=== PATIENT | female | born 1945 | race Caucasian/White ===

== ENCOUNTER 2016-06-12 13:05 | Observation (INO) | payer MEDICARE ==
[~2016-06-12] VITALS: Ht 172.7 cm; Wt 71.2 kg
[2016-06-12] VITALS (11 sets, daily range): BP systolic 119–218; BP diastolic 65–111; PULSE 69–105; RESP 16–20; TEMP 96.4–98.7; O2SAT 94–100
[~2016-06-12 13:05] MED LIST: ASPI81TA82 PO; DEXT1TAB PO; FLUT50SP EACH NARE; LEVA500T PO; LORTA5 PO; POTA99TA12 PO; TAB-TAB PO
[2016-06-12] MEDS ORDERED: LEVA250T PO (13:18)
--- NOTE | 2016-06-12 13:42 | PD ---
HPI Chief Complaint: Chest Pain Time Seen by Provider: 13:30 Travel History International Travel<30 days: No Contact w/Intl Traveler<30days: No Traveled to known affect area: No History of Present Illness HPI This 70-year-old female is complaining of chest pain. She says that last she went to urgent care center because of some tightness in her chest. At that time she was having elevated blood pressure. He was diagnosed with bronchitis. This morning she had an onset of left-sided chest pain related visits says it feels like a pressure on the left side of the chest. She is having some discomfort now. It is not pleuritic. She has no history of heart disease. She has had sporadic elevations of blood pressure but is on no medication. She has no history of diabetes her parents had heart disease. She has never smoked. She has had a slight cough. PFSH Past Medical History Anxiety: Yes Cancer: No Cardiovascular Problems: No Endocrine: No Genitourinary: No Hepatitis: No Hiatal Hernia: No Immune Disorder: No Medical other: Yes (LEG CRAMPS) Musculoskeletal: Yes (GENERALIZED ARTHRITIS) Neurologic: No Psychiatric: Yes (CLAUSTRAPHOBIA) Reproductive: No Respiratory: Yes (ENVIRONMENTAL ALLERGIES) Past Surgical History Abdominal Surgery: Yes (APPY) AICD: No Body Medical Devices: NONE Cardiac Surgery: No Ear Surgery: No Endocrine Surgery: No Eye Surgery: No Gynecologic Surgery: Yes (TL,SURERGY TO REMOVE IUD) Joint Replacement: No Oral Surgery: No Pacemaker: No Thoracic Surgery: No Other Surgery: Yes (NOSE) Social History Alcohol Use: Yes Tobacco Use: No Substance Use: No Allergies-Medications (Allergen,Severity, Reaction): Coded Allergies: Amoxicillin (Verified Allergy, Severe, RASH, EDEMA,DIFFICULTY SWALLOWING, 06/12/16) Compazine (Verified Allergy, Severe, SPASM IN NECK, 06/12/16) Reported Meds & Prescriptions Reported Meds & Active Scripts Active Reported Levaquin (Levofloxacin) 250 Mg Tab Unknown Dose PO DAILY Review of Systems General / Constitutional: No: Fever, Chills Eyes: No: Diploplia, Blurred Vision HENT: No: Headaches, Vertigo Cardiovascular: Positive: Chest Pain or Discomfort, No: Palpitations Respiratory: No: Cough, Shortness of Breath Gastrointestinal: No: Vomiting, Diarrhea Genitourinary: No: Urgency, Frequency Musculoskeletal: No: Myalgias, Arthralgias Skin: No Rash Neurologic: No: Weakness, Dizziness Physical Exam Narrative PhysicalGENERAL: Well-developed female SKIN: Warm and dry. HEAD: Atraumatic. Normocephalic. EYES: Pupils equal and round. No scleral icterus. No injection or drainage. ENT: No nasal bleeding or discharge. Mucous membranes pink and moist. NECK: Trachea midline. No JVD. CARDIOVASCULAR: Regular rate and rhythm. No murmur appreciated. RESPIRATORY: No accessory muscle use. Clear to auscultation. Breath sounds equal bilaterally. GASTROINTESTINAL: Abdomen soft, non-tender, nondistended. Hepatic and splenic margins not palpable. MUSCULOSKELETAL: No obvious deformities. No clubbing. No cyanosis. No edema. NEUROLOGICAL: Awake and alert. No obvious cranial nerve deficits. Motor grossly within normal limits. Normal speech. PSYCHIATRIC: Appropriate mood and affect; insight and judgment normal. Data Data Last Documented VS Vital Signs Date Time Temp Pulse Resp B/P Pulse Ox O2 Delivery O2 Flow Rate FiO2 06/12/16 14:00 105 16 159/91 98 06/12/16 13:14 98.7 Orders Electrocardiogram (06/12/16 13:39) Basic Metabolic Panel (Bmp) (06/12/16 13:39) Complete Blood Count With Diff (06/12/16 13:39) Magnesium (Mg) (06/12/16 13:39) Prothrombin Time / Inr (Pt) (06/12/16 13:39) Act Partial Throm Time (Ptt) (06/12/16 13:39) Troponin I (06/12/16 13:39) Chest, Single Ap (06/12/16 13:39) Ecg Monitoring (06/12/16 13:39) Iv Access Insert/Monitor (06/12/16 13:39) Oximetry (06/12/16 13:39) Oxygen Administration (06/12/16 13:39) Aspirin Chew (Aspirin Chew) (06/12/16 13:45) Nitroglycerin 2% Oint (Nitroglycerin 2% (06/12/16 13:45) Sodium Chloride 0.9% Flush (Ns Flush) (06/12/16 13:45) Nitroglycerin Sl (Nitrostat Sl) (06/12/16 13:45) B-Type Natriuretic Peptide (06/12/16 14:08) Admit Order (Ed Use Only) (06/12/16 14:34) Labs Laboratory Tests Test 06/12/16 06/12/16 13:45 14:20 White Blood Count 7.7 TH/MM3 Red Blood Count 4.65 MIL/MM3 Hemoglobin 13.8 GM/DL Hematocrit 38.9 % Mean Corpuscular Volume 83.7 FL Mean Corpuscular Hemoglobin 29.6 PG Mean Corpuscular Hemoglobin 35.3 % Concent Red Cell Distribution Width 12.2 % Platelet Count 283 TH/MM3 Mean Platelet Volume 8.1 FL Neutrophils (%) (Auto) 76.8 % Lymphocytes (%) (Auto) 16.5 % Monocytes (%) (Auto) 5.3 % Eosinophils (%) (Auto) 0.9 % Basophils (%) (Auto) 0.5 % Neutrophils # (Auto) 5.9 TH/MM3 Lymphocytes # (Auto) 1.3 TH/MM3 Monocytes # (Auto) 0.4 TH/MM3 Eosinophils # (Auto) 0.1 TH/MM3 Basophils # (Auto) 0.0 TH/MM3 CBC Comment DIFF FINAL Differential Comment Prothrombin Time 11.2 SEC Prothromb Time International 1.0 RATIO Ratio Activated Partial 27.9 SEC Thromboplast Time Sodium Level 138 MEQ/L Potassium Level 3.7 MEQ/L Chloride Level 104 MEQ/L Carbon Dioxide Level 23.0 MEQ/L Anion Gap 11 MEQ/L Blood Urea Nitrogen 13 MG/DL Creatinine 0.67 MG/DL Estimat Glomerular Filtration 87 ML/MIN Rate Random Glucose 96 MG/DL Calcium Level 9.1 MG/DL Magnesium Level 2.2 MG/DL Troponin I LESS THAN 0.02 NG/ML B-Type Natriuretic Peptide 33 PG/ML [facility] Medical Decision Making Medical Screen Exam Complete: Yes Emergency Medical Condition: Yes Medical Record Reviewed: Yes Differential Diagnosis Differential includes atypical chest pain, coronary artery disease, angina Narrative Course Chest x-ray shows clear lung henderson. Troponin is normal. EKG shows normal sinus rhythm. Facial be admitted to chest pain center for further evaluation Admitting Information Admitting Physician Requests: Observation Brian Edwards MD Jun 12, 2016 13:42
[2016-06-12] MEDS ORDERED: NITROGLYCERIN 0.4 MG SL 25 TABS/BTL SL ONE (13:45)
[2016-06-12] MEDS ORDERED: SODIUM CHLORIDE 0.9% FLUSH 5 ML FLUSH IVF PRN ×2 (13:45→14:45)
[2016-06-12] MEDS ORDERED: ASPIRIN 81 MG CHEW TAB PO ONE (13:45)
[2016-06-12] MEDS ORDERED: NITROGLYCERIN 2% OINT 1 GM PACKET TOP ONE (13:45)
[2016-06-12 13:55] LABS: AUTOMATED NEUTROPHIL # 5.9 TH/MM3 (1.8-7.7); BASOPHIL % 0.5 % (0.0-2.0); EOSINOPHIL # 0.1 TH/MM3 (0-0.4); EOSINOPHIL % 0.9 % (0.0-4.0); HEMATOCRIT 38.9 % (35.0-46.0); HEMO FLAGS DIFF FINAL; LYMPH % 16.5 % (9.0-44.0); LYMPHOCYTE # 1.3 TH/MM3 (1.0-4.8); MEAN CELL VOLUME 83.7 FL (80.0-100.0); MEAN CORPUSCULAR HEMOGLOBIN 29.6 PG (27.0-34.0); MEAN CORPUSCULAR HGB CONC 35.3 % (32.0-36.0); MONO % 5.3 % (0.0-8.0); NEUT % 76.8 % (16.0-70.0); PLATELET COUNT 283 TH/MM3 (150-450); RED BLOOD COUNT 4.65 MIL/MM3 (4.00-5.30); RED CELL DISTRIBUTION WIDTH 12.2 % (11.6-17.2); WHITE BLOOD COUNT 7.7 TH/MM3 (4.0-11.0)
[2016-06-12 14:06] LABS: CHLORIDE 104 MEQ/L (98-107); POTASSIUM 3.7 MEQ/L (3.5-5.1); SODIUM (NA) 138 MEQ/L (136-145)
[2016-06-12 14:09] LABS: ANION GAP 11 MEQ/L (5-15); BLOOD UREA NITROGEN 13 MG/DL (7-18); MAGNESIUM 2.2 MG/DL (1.5-2.5)
[2016-06-12 14:10] LABS: APTT (PATIENT) 27.9 SEC (24.3-30.1); PROTHROMBIN TIME - PATIENT 11.2 SEC (9.8-11.6)
[2016-06-12 14:13] LABS: GLOMERULAR FILTRATION RATE 87 ML/MIN (>89)
[2016-06-12] MEDS ORDERED: MORPHINE SULFATE 4 MG/ML INJ IV PRN (14:45)
[2016-06-12] MEDS ORDERED: TEMAZEPAM 15 MG CAP PO PRN (14:45)
[2016-06-12] MEDS ORDERED: NITROGLYCERIN 0.4 MG SL 25 TABS/BTL SL PRN (14:45)
[2016-06-12] MEDS ORDERED: ONDANSETRON HCL 4 MG/2 ML VIAL IV PRN (14:45)
[2016-06-12] MEDS ORDERED: ACETAMINOPHEN 500 MG CPLT PO PRN (14:45)
[2016-06-12] MEDS ORDERED: ACETAMINOPHEN/HYDROcodone 325 MG/7.5 MG TAB PO PRN (14:45)
--- NOTE | 2016-06-12 15:10 | RADHPO ---
EXAM DATE/TIME: 06/12/2016 13:46 [place] COMPARISON: No previous studies available for comparison. INDICATIONS : Chest pressure MEDICAL HISTORY : None. SURGICAL HISTORY : None. ENCOUNTER: Initial ACUITY: 1 day PAIN SCORE: 5/10 LOCATION: middle chest FINDINGS: A single view of the chest demonstrates the lungs to be symmetrically aerated without evidence of mas s, infiltrate or effusion. The cardiomediastinal contours are unremarkable. Osseous structures are intact. CONCLUSION: No acute cardiopulmonary process. Juan Francisco Clifford MD on June 12, 2016 at 15:08 Board Certified Radiologist. This report was verified electronically.
--- NOTE | 2016-06-12 15:37 | HHI.HP ---
[facility] Service [facility] Primary Care Physician Nirmala Alfonso DO Admission Diagnosis CHEST PAIN Diagnoses: (1) Chest pain Diagnosis: Principal (2) Family history of heart disease Diagnosis: Secondary Travel History International Travel<30 Days: No Contact w/Intl Traveler <30 Da: No Traveled to Known Affected Are: No History of Present Illness 70-year-old female with no chronic medical illnesses who is mentally active and plays golf at least 3 times weekly. Does exercise on treadmill frequently. Presented to hospital because of headache and chest pain. Patient states that her normal state of health until this morning approximately 7 AM she woke up with left-sided headache. She states that she does have history of migraines and her last one was one month ago. The patient had left-sided headache and had one episode of vomiting. Approximately 2 hours after that she developed pain on the left side of her lower chest. It has remained constant 8/ 10 on a pain scale without any radiation to the neck, back, shoulder, arm. She is not had any nausea vomiting since the pain started. She denies any diaphoresis, shortness breath, dyspnea, dizziness, lightheadedness. She states that she does not get any worsening pain whenever she takes a deep breath or moves. The patient indicates that she was just seen a couple days ago in urgent care center and treated for bronchitis with Levaquin. She states that she has minimal cough without any phlegm production. Patient with minimal risk factors to include age and family history heart disease. She states that her mother had bypass surgery in her early 70s. At the present time patient still does have pain. Is recommended by ER physician patient be observed and chest pain center for further evaluation and management. Review of Systems Constitutional: DENIES: Diaphoretic episodes, Fatigue, Fever, Weight gain, Weight loss, Chills, Dizziness, Change in appetite, Night Sweats Eyes: DENIES: Blurred vision, Diplopia, Eye inflammation, Eye pain, Vision loss , Double Vision Ears, nose, mouth, throat: DENIES: Vertigo, Nasal discharge, Throat pain, Ear Pain, Running Nose, Sinus Pain Respiratory: COMPLAINS OF: Cough, DENIES: Apneas, Snoring, Wheezing, Hemoptysis, Sputum production, Shortness of breath Cardiovascular: COMPLAINS OF: Chest pain, DENIES: Palpitations, Syncope, Dyspnea on Exertion, Lower Extremity Edema, Orthopnea Gastrointestinal: DENIES: Abdominal pain, Black stools, Bloody stools, Constipation, Diarrhea, Nausea, Vomiting, Difficulty Swallowing, Anorexia Neurologic: COMPLAINS OF: Headache, DENIES: Abnormal gait, Localized weakness , Paresthesias, Seizures, Speech Problems, Tremor, Poor Balance Past Family Social History Past Medical History No chronic medical illnesses Past Surgical History Left rotator cuff surgery Surgery remove IUD Reported Medications No chronic home medications Allergies: Coded Allergies: Amoxicillin (Verified Allergy, Severe, RASH, EDEMA,DIFFICULTY SWALLOWING, 06/12/16) Compazine (Verified Allergy, Severe, SPASM IN NECK, 06/12/16) Family History Reviewed is significant for mother living to age 84, at 6070 she did have heart disease and required bypass surgery Social History Patient does drink alcohol relatively daily. Denies any tobacco or illicit drugs Physical Exam Vital Signs Vital Signs Date Time Temp Pulse Resp B/P Pulse Ox O2 Delivery O2 Flow Rate FiO2 06/12/16 14:41 71 20 168/65 98 06/12/16 14:00 105 16 159/91 98 06/12/16 13:58 90 20 183/99 99 06/12/16 13:53 94 06/12/16 13:14 98.7 84 18 218/111 100 Physical Exam GENERAL: Well-developed, well-nourished, in no acute distress. alert and orientated HEENT: Head is normocephalic without any lesions or masses noted. Facial features are symmetric. Eyes: Pupils equal round reactive to light. Extraocular muscles are intact. Conjunctivae were clear. Oropharyngeal: Pharynx without any erythema edema. Tongue is midline without deviation. Buccal mucosa is moist without any masses or lesions NECK: Supple without any masses. Trachea midline no deviation. No JVD, no bruits are appreciated CARDIAC: Regular rhythm, regular rate. S1/S2 are heard. No murmurs gallops or rubs. LUNGS: Clear to auscultation bilaterally. No wheeze, rhonchi or rales. No use of accessory muscles on inspiration or expiration. ABDOMEN: Soft, nontender. Nondistended. Bowel sounds heard in all 4 quadrants. No organomegaly or masses. Negative rebound, negative guarding EXTREMITIES: No edema, pulses are equal bilaterally. No cyanosis or clubbing NEUROLOGY: Mood and affect appear appropriate. Cranial nerves II through XII grossly intact. Muscle strength 5/5 in upper and lower extremities bilaterally. Deep tendon reflexes are 2+ in upper and lower extremities bilaterally. Laboratory Laboratory Tests Test 06/12/16 06/12/16 13:45 14:20 White Blood Count 7.7 Red Blood Count 4.65 Hemoglobin 13.8 Hematocrit 38.9 Mean Corpuscular Volume 83.7 Mean Corpuscular Hemoglobin 29.6 Mean Corpuscular Hemoglobin 35.3 Concent Red Cell Distribution Width 12.2 Platelet Count 283 Mean Platelet Volume 8.1 Neutrophils (%) (Auto) 76.8 Lymphocytes (%) (Auto) 16.5 Monocytes (%) (Auto) 5.3 Eosinophils (%) (Auto) 0.9 Basophils (%) (Auto) 0.5 Neutrophils # (Auto) 5.9 Lymphocytes # (Auto) 1.3 Monocytes # (Auto) 0.4 Eosinophils # (Auto) 0.1 Basophils # (Auto) 0.0 CBC Comment DIFF FINAL Differential Comment Prothrombin Time 11.2 Prothromb Time International 1.0 Ratio Activated Partial 27.9 Thromboplast Time Sodium Level 138 Potassium Level 3.7 Chloride Level 104 Carbon Dioxide Level 23.0 Anion Gap 11 Blood Urea Nitrogen 13 Creatinine 0.67 Estimat Glomerular Filtration 87 Rate Random Glucose 96 Calcium Level 9.1 Magnesium Level 2.2 Troponin I LESS THAN 0.02 B-Type Natriuretic Peptide 33 Result Diagram: 06/12/16 1345 06/12/16 1345 Imaging Last Impressions Chest X-Ray 06/12/16 1339 Signed Impressions: Service Date/Time: Sunday, June 12, 2016 13:46 - CONCLUSION: No acute cardiopulmonary process. Juan Francisco Clifford MD Assessment and Plan Assessment and Plan Chest pain: Atypical. Patient with minimal risk factors to include age and family history of heart disease. We'll continue to trend cardiac enzymes rule patient out for acute coronary event. Original EKG shows sinus rhythm without any changes. We'll continue serial EKGs rule out any cardiac injury. If patient ruled out for acute coronary event. Could pursue exercise stress test rule out any underlying ischemia. Continue aspirin, Lortab, morphine for pain control. Headache, history of migraines: Continue pain control -HTN: not on any meds , will start vasotec prn , will check UA if +protein will start lisinopril 5 mg po daily , otherwise norvasc 5 mg DVT prevention: Sequential compression devices Written by Carlos Borjas PA-C, acting as scribe for Dr. Queen on 06/12/16 at 1545. The documentation accurately reflects the work and decisions performed face-to- face by Dr. Queen on 06/12/16 at 1545. Problem Qualifiers (1) Chest pain: Qualified Code: R07.9 - Chest pain, unspecified type Carlos Borjas Jun 12, 2016 15:37 Ibeth Queen MD Jun 12, 2016 16:46
[2016-06-12] MEDS ORDERED: ENALAPRILAT 1.25 MG/ML VIAL IV PUSH PRN (16:45)
[2016-06-12 17:11] LABS: CREATINE KINASE 55 U/L (26-192)
[2016-06-12 17:25] LABS: BLOOD, URINE NEG (NEG); GLUCOSE,URINE NEG (NEG); KETONE, URINE 15 mg/dL (NEG); NITRITE,URINE NEG (NEG)
[2016-06-12 17:33] LABS: COMMENT (UR) CULT NOT INDICATED; CULTURE IF INDICATED CULT NOT INDICATED; METHOD OF COLLECTION CLEAN CATCH; SQUAMOUS EPITHELIAL CELL URINE 0-5 /hpf (0-5); URINE COLOR STRAW (YELLW/STRAW)
[2016-06-12 20:12] LABS: CREATINE KINASE 52 U/L (26-192)
[2016-06-12] MEDS: SODIUM CHLORIDE 0.9% FLUSH 5 ML FLUSH IVF SCH (22:20)
[2016-06-13] VITALS: BP 139/79; PULSE 74; RESP 18; TEMP 96.9; O2SAT 97
[2016-06-13 04:00] VITALS: BP 125/70; PULSE 71; RESP 18; TEMP 96.1; O2SAT 96
[2016-06-13 08:00] VITALS: BP 143/88; PULSE 81; RESP 20; TEMP 97.4; O2SAT 97
[2016-06-13 08:03] VITALS: PULSE 66
[2016-06-13] MEDS ORDERED: ASPIRIN 325 MG TAB PO SCH (09:00)
[2016-06-13] MEDS: SODIUM CHLORIDE 0.9% FLUSH 5 ML FLUSH IVF SCH (09:13)
--- NOTE | 2016-06-13 09:16 | HHI.PR ---
Subjective Remarks Follow-up for chest pain. Patient admits to right sided chest pain this morning although it was on the left yesterday. States it feels "tight". She denies feeling lightheaded or dizzy but states she has not felt well the past few days and was diagnosed with bronchitis at her primary care physician's office on and states her blood pressure was also high at that time. She states she hasn't been coughing since being here. She denies any pleuritic pain. Denies any fevers or chills overnight. Patient does not know if she is short of breath and then states she is because she is upset. Patient is normally active and walks a treadmill. Objective Vitals Vital Signs Date Time Temp Pulse Resp B/P Pulse Ox O2 Delivery O2 Flow Rate FiO2 06/13/16 08:00 97.4 81 20 143/88 97 06/13/16 04:00 96.1 71 18 125/70 96 06/13/16 00:00 96.9 74 18 139/79 97 06/12/16 20:11 71 06/12/16 20:10 98 21 06/12/16 20:00 97.4 69 18 119/81 97 06/12/16 17:24 83 06/12/16 16:32 98 21 06/12/16 16:00 96.4 70 16 164/94 98 06/12/16 14:41 71 20 168/65 98 06/12/16 14:00 105 16 159/91 98 06/12/16 13:58 90 20 183/99 99 06/12/16 13:53 94 06/12/16 13:14 98.7 84 18 218/111 100 I/O 06/12/16 06/12/16 06/12/16 06/13/16 06/13/16 06/13/16 07:00 15:00 23:00 07:00 15:00 23:00 Intake Total 0 ml 240 ml Balance 0 ml 240 ml Intake Oral 240 ml IV Total 0 ml 0 ml # Voids 3 # Bowel Movements 0 Result Diagram: 06/12/16 1345 06/12/16 1345 Imaging Last Impressions Chest X-Ray 06/12/16 1339 Signed Impressions: Service Date/Time: Sunday, June 12, 2016 13:46 - CONCLUSION: No acute cardiopulmonary process. Juan Francisco Clifford MD Objective Remarks GENERAL: Well-nourished, well-developed patient in no apparent distress SKIN: Warm and dry. HEAD: Atraumatic. Normocephalic. CARDIOVASCULAR: Regular rate and rhythm. No murmurs, gallops, or rubs. CHEST: Reproducible tenderness over the right and left anterior chest. RESPIRATORY: No accessory muscle use. Clear to auscultation. Breath sounds equal bilaterally. GASTROINTESTINAL: Abdomen soft, non-tender, nondistended. MUSCULOSKELETAL: No lower extremity edema or calf pain bilaterally. NEUROLOGICAL: Awake and alert. Motor grossly within normal limits. Normal speech. PSYCHIATRIC: Slightly anxious. Normal insight and judgement. Urinary Catheter: No Vascular Central Line Catheter: No A/P Problem List: (1) Chest pain ICD Code: R07.9 Status: Acute (2) Hypertensive urgency ICD Code: I16.0 Status: Acute (3) Family history of heart disease ICD Code: Z82.49 Assessment and Plan Chest pain: Atypical. Patient with minimal risk factors to include age and family history of heart disease. Troponin 3 <0.02. Chest x-ray personally interpreted and normal. Patient does have reproducible tenderness over both sides of her anterior chest. EKG #1 with normal sinus rhythm; flattened T waves in V2 but QRS complex negative; no convincing ischemic changes noted. EKG #2 with normal sinus rhythm; flattened T waves in V2, but QRS complex negative; nonspecific T-wave changes in lead 3 but not in contiguous leads. No obvious ischemic changes noted. EKG #3 with normal sinus rhythm, left axis deviation. No evidence of ischemia. -Continue aspirin, Lortab, morphine for pain control. - I had a long discussion with the patient about the treadmill stress test. I offered to do the nuclear stress test since she states she has not been feeling well, but she prefers to do the ETT. Headache, history of migraines: Continue pain control Hypertensive urgency/HTN: not on any meds; Vasotec prn. UA personally reviewed without protein. Patient required Vasotec at 1713 yesterday. Blood pressure is improved; only mildly elevated at 143/88 this morning. I informed the patient that if her blood pressure remains elevated she will need to be started on medication, likely Norvasc 5 mg daily. Patient would prefer not to be started on medication if possible as she states her blood pressure goes high when she is not feeling well. DVT prevention: Sequential compression devices ETT reviewed by car customizer Dr. Irby, negative for ischemia. Discharge disposition: Home in stable condition Diet: Regular Activity: Regular Medications: Finish antibiotics previously prescribed. Follow up: Dr. Gael Alfonso PCP 1 week. Written by Delicia Lepe PA-C acting as scribe for Dr. Queen on 06/13/16 at ~ 1030. Problem Qualifiers (1) Chest pain: Qualified Code: R07.9 - Chest pain, unspecified type Delicia Lepe Jun 13, 2016 09:16
--- NOTE | 2016-06-13 10:07 | EKG ---
Date Performed: 06/12/2016 Time Performed: 19:35:34 PTAGE: 70 years EKG: Sinus rhythm Leftward axis Borderline ECG PREVIOUS TRACING : 06/12/2016 16.31 DOCTOR: Olegario Perez Interpretating Date/Time 06/13/2016 10:06:01
--- NOTE | 2016-06-13 10:19 | EKG ---
Date Performed: 06/12/2016 Time Performed: 16:31:56 PTAGE: 70 years EKG: Sinus rhythm Normal ECG PREVIOUS TRACING : 06/12/2016 13.09 DOCTOR: Olegario Perez Interpretating Date/Time 06/13/2016 10:16:36
--- NOTE | 2016-06-13 10:24 | EKG ---
Date Performed: 06/12/2016 Time Performed: 13:09:42 PTAGE: 70 years EKG: Sinus rhythm Normal ECG PREVIOUS TRACING : 01/04/2016 06.55 DOCTOR: Olegario Perez Interpretating Date/Time 06/13/2016 10:20:22
--- NOTE | 2016-06-13 10:31 | TR ---
Date Performed: 06/13/2016 Time Performed: 09:40:50 DOCTOR: Jeanie Irby DRUG LIST: CLINICAL HISTORY: CHEST PAIN REASON FOR TEST: Chest pain REASON FOR ENDING: OBSERVATION: CONCLUSION: Patient tolerated TAMRA protocol with Total Exercise Time=6:51 Maximum XZ=818 % Max HR Jkiaemnu=568.0% Maximum PV=940/90. Testing stopped secondary to fatigue and goal achieved. Started with vague tightness in chest prior to exercise. No increase in chest pain during exercise. Occasion al PVC. HR and BP apprpriate response to exercise. HR and BP recovering appropriately. No ischemia COMMENTS:
--- NOTE | 2016-06-13 10:35 | HHI.DCPOC ---
Discharge Care Plan Diagnosis: (1) Chest pain (2) Hypertensive urgency Your Health Problems Are: Chest Pain Goals to Promote Your Health * To prevent worsening of your condition and complications * To maintain your health at the optimal level Directions to Meet Your Goals Take your medications as prescribed Follow your dietary instruction Follow activity as directed Keep your appointments as scheduled Take your immunizations and boosters as scheduled If your symptoms worsen call your PCP, if no PCP go to Urgent Care Center or Emergency Room Smoking is Dangerous to Your Health. Avoid second hand smoke Call the 24-hour hour crisis hotline for domestic abuse at Delicia Lepe Jun 13, 2016 10:35
[2016-06-13 11:15] VITALS: BP 154/86; PULSE 74; RESP 20; TEMP 97.6; O2SAT 98
== END 2016-06-13 12:05 | disposition home or self-care (01) ==
LOC: PHED 13:05 → PHEDA 14:35 → PH3A 15:49
PROVIDERS: ADMIT Hospitalist; ATTEND Hospitalist
DX: R07.9 Chest pain, unspecified (principal); R05 Cough; Z82.49 Family history of ischemic heart disease and other diseases of the circulatory system; R51 Headache; I10 Essential (primary) hypertension; Z79.899 Other long term (current) drug therapy
CPT/HCPCS: 71010; 80048; 81001; 82550; 83735; 83880; 84484; 85025; 85610; 85730; 93005; 93017; 99285; G0378